=== PATIENT | male | born 1955 | race Caucasian/White ===

== ENCOUNTER → 2018-05-15 | Outpatient (CLI) | payer OTHER | LOC: CAT 09:46 | DX: Z13.6 Encounter for screening for cardiovascular disorders (principal); E78.00 Pure hypercholesterolemia, unspecified ==

== ENCOUNTER → 2019-11-28 | Outpatient (CLI) | payer BC | END | disposition home or self-care (01) | LOC: SJCVCIMAG 11-13 15:07 | DX: I25.10 Atherosclerotic heart disease of native coronary artery without angina pectoris (principal); R94.31 Abnormal electrocardiogram [ECG] [EKG] ==

== ENCOUNTER → 2021-11-25 | Outpatient (CLI) | payer BC | LOC: SJCVCIMAG 09:50 | PROVIDERS: ATTEND Internal Medicine Cardiovascular Disease | DX: E78.5 Hyperlipidemia, unspecified (principal); I10 Essential (primary) hypertension; R93.1 Abnormal findings on diagnostic imaging of heart and coronary circulation; R60.9 Edema, unspecified; R06.00 Dyspnea, unspecified ==